=== PATIENT | female | born 1990 | race Caucasian/White ===

== ENCOUNTER 2024-05-04 09:51 | Emergency (ER) | payer OTHER ==
[~2024-05-04] VITALS: Ht 162.6 cm; Wt 109.0 kg
[2024-05-04 09:58] VITALS: TEMP 98.4; O2SAT 98
[2024-05-04 10:27] LABS: CLARITY URINE CLEAR (CLEAR); COLOR URINE YELLOW (YELLOW); GLUCOSE URINE NEGATIVE (NEGATIVE); KETONES URINE NEGATIVE (NEGATIVE); LEUKOCYTE ESTERASE URINE NEGATIVE (NEGATIVE); NITRITE URINE NEGATIVE (NEGATIVE); OCCULT BLOOD URINE NEGATIVE (NEGATIVE); PH URINE 5.5 (4.5-8.0); PROTEIN URINE TRACE (NEGATIVE); SPECIFIC GRAVITY URINE 1.013 (1.005-1.030); UROBILINOGEN URINE 0.2 E.U./dL (0.2-1.0)
[2024-05-04] MEDS ORDERED: PANTOPRAZOLE 40MG DR TABLET PO ONE (10:30)
[2024-05-04] MEDS ORDERED: HYDROCODONE/ACETAMINOPHEN 5/325MG TABLET PO ONE (10:30)
[2024-05-04] MEDS ORDERED: ONDANSETRON 4MG ODT PO ONE (10:30)
[2024-05-04 10:40] LABS: BASOPHILS % 0.4 % (0.0-2.0); EOSINOPHILS % 0.3 % (0.0-5.0); HEMATOCRIT. 36.9 % (36.0-48.0); LYMPHOCYTES % 13.1 % (20.0-50.0); MEAN CORPUSCULAR HEMOGLOBIN 26.8 pg (28.0-32.0); MEAN CORPUSCULAR HGB CONC 32.6 g/dL (31.0-37.0); MEAN CORPUSCULAR VOLUME 82.2 fL (81.0-99.0); MEAN PLATELET VOLUME 8.2 fl (7.4-10.4); MONOCYTES % 7.9 % (2.0-8.0); NEUTROPHILS % 78.3 % (40.0-76.0); PLATELET 384 x1000/uL (130-400); RED BLOOD CELL COUNT 4.49 mill/uL (4.2-5.4); RED CELL DISTRIBUTION WIDTH 14.9 % (11.6-14.6); WHITE BLOOD COUNT 12.7 x1000/uL (4.5-11.0)
[2024-05-04 10:46] LABS: CHLORIDE 103 mEq/L (98-107); SODIUM 139 mEq/L (136-145)
[2024-05-04 10:47] LABS: CARBON DIOXIDE 28 mEq/L (21-32)
[2024-05-04 10:48] LABS: CALCIUM 9.7 mg/dL (8.7-10.4)
[2024-05-04 10:52] LABS: CREATININE 0.9 mg/dL (0.6-1.0); GLUCOSE 181 mg/dL (70-105)
[2024-05-04 10:53] LABS: UREA NITROGEN BLOOD 6 mg/dL (9-23)
[2024-05-04 10:54] LABS: ALANINE AMINOTRANSFERASE 20 IU/L (10-49); ALBUMIN 4.1 g/dL (3.2-4.8); ASPARTATE AMINOTRANSFERASE 15 IU/L (<34)
[2024-05-04 10:55] LABS: BILIRUBIN DIRECT 0.1 mg/dL (<=3.0); BILIRUBIN TOTAL 0.4 mg/dL (0.1-1.0); PROTEIN TOTAL 7.4 g/dL (6.0-8.3)
[2024-05-04 11:24] LABS: HCG SCREEN NEGATIVE
[2024-05-04 11:30] LABS: MUCUS URINE 2+ /lpf (< = 2+); SQUAMOUS EPITHELIAL CELL URINE 2+ /lpf (RARE/1+)
[2024-05-04 11:31] LABS: BACTERIA URINE 1+; RBC URINE NONE SEEN /hpf (0-2); WBC URINE 0-2 /hpf (0-2)
[2024-05-04] MEDS ORDERED: LACT1CAP78 MT (12:38)
[2024-05-04] MEDS ORDERED: LOPE2CAP MT (12:38)
[2024-05-04] MEDS ORDERED: TOPUD PO (12:38)
[2024-05-04] MEDS ORDERED: AZIT250T12 MT (12:38)
[2024-05-04 12:53] VITALS: BP 128/77; PULSE 76; RESP 16
[2024-05-04] MEDS: HYDROCODONE/ACETAMINOPHEN 5/325MG TABLET PO NR (12:53)
[2024-05-04] MEDS: ONDANSETRON 4MG ODT PO NR (12:53)
[2024-05-04] MEDS: PANTOPRAZOLE 40MG DR TABLET PO NR (12:53)
== END 2024-05-04 14:14 | disposition home or self-care (01) ==
LOC: ER 09:51
DX: K52.9 Noninfective gastroenteritis and colitis, unspecified (principal)
CPT/HCPCS: 99284; 74176; 71045; 80076; 80048; 81003; 84703; 83690; 85025; 36415; Q0162